=== PATIENT | female | born 1945 | race Caucasian/White ===

== ENCOUNTER → 2018-06-24 11:30 | Outpatient (CLI) | payer MEDICARE, OTHER, SELFPAY ==
--- NOTE | 2018-06-24 11:33 | DI.MRI.S_ITS ---
PROCEDURE: MR LUMBAR SPINE WO CON INDICATIONS: chronic axial low back pain TECHNIQUE: Noncontrast sagittal T1 spin echo and T2 fast echo, sagittal STIR, axial T1 and T2 fast spin echo through the lumbar spine. In cases with scoliosis, additional coronal T2 fast spin echo may be performed. COMPARISON: [facility], CR, XR LUMBAR SPINE MIN 4V, 06/24/2018, 11:34. FINDINGS: Image quality: Excellent. Alignment and Curvature: Grade 1 anterolisthesis is seen at L5-S1. Bilateral pars defects are faintly visualized. Bone Marrow: Marrow is of normal overall signal. No acute vertebral body compression fractures. Spinal Cord: Conus medullaris terminates at the L1 level. Visualized cord demonstrates normal signal and size. Paraspinous Soft Tissues: No paravertebral masses. T12-L1: Normal appearance. L1-L2: At least moderate loss of disc height is seen. Loss of disc signal is seen at this level. Moderate generalized disc bulge is seen. There is mild to moderate left-sided and minimal to mild right-sided neural foraminal narrowing seen. No significant central canal narrowing is seen. L2-L3: The disc height is well-preserved. Loss of disc signal is seen at this level. Mild generalized disc bulge is seen. No significant neural foraminal narrowing is seen. Mild central canal narrowing is seen. L3-L4: Minimal loss of disc height is seen. Loss of disc signal is seen. Moderate disc bulge is seen at this level. Moderate facet hypertrophy is seen, with associated moderate hypertrophy of the ligamentum flavum. There is moderate right-sided and moderate to severe left-sided neural foraminal narrowing seen. There is a degree of impingement seen upon the exiting left L3 nerve root. At least moderate central canal narrowing is seen at this level. The degree of central canal narrowing is exacerbated by a relatively prominent epidural posteriorly. L4-L5: The disc height is well-preserved. Loss of disc signal is seen at this level. Moderate generalized disc bulge is seen. Moderate facet joint hypertrophy is seen. There is moderate bilateral neural foraminal narrowing seen. L5-S1: Moderate to severe loss of disc height and disc signal are seen. Endplate irregularity is seen. Moderate facet hypertrophy is seen. There is moderate left-sided and moderate to severe right-sided neural foraminal narrowing seen. There is a degree of impingement seen upon the exiting right L5 nerve root. No significant central canal narrowing is seen. IMPRESSION: Grade 1 L5-S1 anterolisthesis, with associated bilateral pars defects. Multiple levels of degenerative change are seen, which are most prominent at L5-S1, with moderate to severe right-sided neural foraminal narrowing, with associated nerve root impingement. Moderate to severe left-sided neural foraminal narrowing is seen at L3-L4, with associated nerve root impingement. Dictated by: Pro Herrmann M.D. on 06/24/2018 at 13:16 Approved by: Pro Herrmann M.D. on 06/24/2018 at 13:22
--- NOTE | 2018-06-24 11:33 | DI.RAD.S_ITS ---
PROCEDURE: XR LUMBAR SPINE MIN 4V INDICATIONS: Chronic low back pain' TECHNIQUE: 5 views of the lumbar spine were acquired. COMPARISON: [facility], MR, MR LUMBAR SPINE WO CON, 06/24/2018, 12:01. FINDINGS: Bones: 5 nonrib-bearing vertebrae are present. There is grade 1 anterolisthesis of L5 on S1. No vertebral body compression fractures. No suspicious bony lesions. There is degenerative disc disease, severe at L5-S1, moderate at L1-L2 and mild at other levels. There is moderate facet arthropathy lower lumbar spine. Soft tissues: Overlying bowel gas pattern is normal. No suspicious soft tissue calcifications. Oblique images: Bilateral pars defects at L5. IMPRESSION: 1. Degenerative disc and facet disease. 2. Pars defect at L5 bilaterally causing grade 1 anterolisthesis of L5 on S1. Dictated by: Franco Jean-Baptiste M.D. on 06/24/2018 at 17:23 Approved by: Franco Jean-Baptiste M.D. on 06/24/2018 at 17:28
== END ==
PROVIDERS: PCP Internal Medicine Geriatric Medicine; Visit Provider Physical Medicine & Rehabilitation
DX: M54.5 Low back pain (principal); G89.29 Other chronic pain; M43.17 Spondylolisthesis, lumbosacral region; M48.061 Spinal stenosis, lumbar region without neurogenic claudication; M47.27 Other spondylosis with radiculopathy, lumbosacral region
CPT/HCPCS: 72110; 72148

== ENCOUNTER 2018-08-20 13:50 | Outpatient (CLI) | payer MEDICARE, OTHER, SELFPAY ==
[2018-08-20] VITALS (7 sets, daily range): BP systolic 146–175; BP diastolic 54–94; PULSE 59–65; RESP 16–18; TEMP 36.1; O2SAT 96–99
--- NOTE | 2018-08-20 13:58 | DI.RAD.S_ITS ---
PROCEDURE: PAIN L/S TRANSFORAMINAL INJECT INDICATIONS: RADICULOPATHY FINDINGS: Fluoroscopic spot filming was performed to verify placement of spinal needles at the right L5-S1 level level(s), as labeled on the films. Appropriate location(s) of the needle tip(s) was confirmed by injection of iodinated contrast. IMPRESSION: Successful needle tip localization at the neural foramen on the right at the L5-S1 level, for transforaminal epidural steroid injection. Dictated by: Hay Thomas M.D. on 08/20/2018 at 15:26 Approved by: Hay Thomas M.D. on 08/20/2018 at 15:26
[2018-08-20] MEDS: MIDAZOLAM 5 MG/5 ML VIAL IV (15:00)
[2018-08-20] MEDS: BUPIVACAINE 0.25% (PF) VIAL 2 ML INJ (15:04)
[2018-08-20] MEDS: DEXAMETHASONE 10 MG/ML VIAL 20 MG INJ (15:04)
[2018-08-20] MEDS: IOPAMIDOL 15 ML VIAL 3 ML INJ (15:04)
--- NOTE | 2018-08-20 15:08 | PC.NURSE ---
pt tolerated procedure well. Able to get off the table with minimal assist. Transferred pt to pre procedure room awake and alert. Continued monitoring with Norma BAKER.
--- NOTE | 2018-08-20 15:17 | P.PCN_ITS ---
Procedures Date/Time Date of procedure: 08/20/18 Time of procedure: 15:17 General Procedure description: PREOP DIAGNOSIS 1. FORMAINAL STENOSIS WITH LE SYMPTOMS, POST OP DIAGNOSIS 1. FORMAINAL STENOSIS WITH LE SYMPTOMS, PROCEDURES 1.FLUOROSCOPICALLY GUIDED CONTRAST CONTROLLED TRANSFORAMINAL EPIDURAL STEROID INJECTION - RIGHT L5/S1 TFESI PHYSICIAN: Luis Daniel Stark DO INDICATIONS: Rosi is referred by Dr. Reese for treatment of Foraminal Stenosis with right LE Symptoms FINDINGS Foraminal Nerve Root Compression secondary to disc disease and facet hypertrophy DESCRIPTION OF PROCEDURE Following denial of allergy and review of potential side effects and complications, including, but not necessarily limited to, infection, allergic reaction, local tissue breakdown, stroke, temporary or permanent nerve injury, paralysis, and possible , the patient indicated that the patient understood and agreed to proceed. An informed consent document was signed by the patient, witnessed by a nurse, and placed in the patient's chart. Additionally, other treatment options including medications, modalities, and physical therapy were reviewed with the patient. After review of previous anaesthesic history and IV conscious sedation the patient was deemed safe to proceed with todays procedure with IV conscious sedation as ASA class II designation. Safety time-out was performed to confirm patient ID, procedure to be performed and site of procedure. IV sedation was accomplished with a combination of 3mg of Versed was administered by the RN after DO order, titrated to patient comfort during the course of the procedure while the patient remained responsive to all verbal commands In the prone position following sterile prep and drape of the lumbar region, the right L5/S1 posterior neuroforamen was identified fluoroscopically. The skin was anesthetized via a 25-gauge 1.5-inch needle with 1% lidocaine solution. At this point, a 25-gauge 3.5-inch spinal needle was atraumatically introduced and advanced under fluoroscopic guidance through the posterior right L5/S1 neuroforamen to approximately the anterior aspect of the canal. Depth was confirmed on lateral view. Following negative aspiration, injection of approxim ately 1.5 cc of Isovue 200 under live fluoroscopy in the AP view confirmed excellent flow along the nerve root, into the epidural space without vascular or intrathecal uptake observed Radiological data, including multiple fluoroscopic views of the lumbosacral spine, reveal a spinal needle at the right L5/S1 posterior neuroforamen. Subsequent views show flow of contrast material flowing superiorly and inferiorly along the nerve root confirming epidural flow. Subsequently, a test dose of 1.5 cc of 1% lidocaine solution was administered and patient was observed for two minutes for signs or symptoms of complications, including abdominal pain, shortness of breath, bilateral upper or lower extremity weakness, nausea and vomiting, prior to steroid injection. At this point, a total of 2cc or 20mg of dexamethasone was injected without incident. The procedure tolerated the procedure well without signs or symptoms of complications prior to transfer to the recovery area continued monitoring without incident. The patient was then transferred to the recovery area where they were observed for an appropriate time after the injection. The patient reported a VAS score of 7 prior to the procedure and a post-procedure VAS of 0. Total Fluoroscopy Time: 20.9 seconds Total Conscious Sedation Time: 24min POST OP INSTRUCTIONS The patient was provided a Pain Log to continue to record their response to the target-specific procedure prior to follow-up visit with their referring physician. Additionally, specific post-injection care instructions and a contact number to our office were provided if concerns arise regarding possible complications associated with the procedure are suspected. Luis Daniel Stark DO Complications: none
--- NOTE | 2018-08-20 15:27 | PC.NURSE ---
ACCEPTED CARE OF PT IN STABLE CONDITION IN POST PROC AREA.
== END 2018-08-20 16:21 | disposition home or self-care (01) ==
PROVIDERS: PCP Internal Medicine Geriatric Medicine; Visit Provider Physical Medicine & Rehabilitation
DX: M48.07 Spinal stenosis, lumbosacral region (principal); M51.17 Intervertebral disc disorders with radiculopathy, lumbosacral region; M47.27 Other spondylosis with radiculopathy, lumbosacral region; M43.16 Spondylolisthesis, lumbar region; M43.17 Spondylolisthesis, lumbosacral region
CPT/HCPCS: 64483; 99152; J1100; J2250; J3010

== ENCOUNTER 2018-09-24 13:09 | Outpatient (CLI) | payer MEDICARE, OTHER, SELFPAY ==
[2018-09-24] VITALS (8 sets, daily range): BP systolic 107–174; BP diastolic 62–96; PULSE 61–72; RESP 16–18; TEMP 36.5; O2SAT 94–98
--- NOTE | 2018-09-24 13:10 | DI.RAD.S_ITS ---
PROCEDURE: PAIN L/SI FACET INJ/BLK 1STL INDICATIONS: SPONDYLOSIS FINDINGS: Fluoroscopic spot filming was performed to verify placement of spinal needles at the L5-S1 level(s), as labeled on the films. Appropriate location(s) of the needle tip(s) was confirmed by injection of iodinated contrast. Dictated by: Rasta Gleason M.D. on 09/24/2018 at 16:02 Approved by: Rasta Gleason M.D. on 09/24/2018 at 16:04
[2018-09-24] MEDS: MIDAZOLAM 5 MG/5 ML VIAL IV (14:10)
[2018-09-24] MEDS: fentaNYL 100 MCG/2 ML INJ 50 MCG IV (14:15)
[2018-09-24] MEDS: BUPIVACAINE 0.5% (PF) VIAL 2 ML INJ (14:32)
[2018-09-24] MEDS: IOPAMIDOL 15 ML VIAL 3 ML INJ (14:32)
[2018-09-24] MEDS: LIDOCAINE 1% 20 ML INJ 10 ML INJ (14:32)
[2018-09-24] MEDS: BETAMETHASONE 30 MG/5 ML MDV 12 MG INJ (14:33)
--- NOTE | 2018-09-24 14:36 | PC.NURSE ---
pt tolerated procedure well. Able to get off the table with standby assist. Transferred pt to pre procedure room via wheelchair for continued monitoring with Elizabeth BAKER.
--- NOTE | 2018-09-24 14:41 | P.PCN_ITS ---
Procedures Date/Time Date of procedure: 09/24/18 Time of procedure: 14:39 General Procedure description: PREOP DIAGNOSIS 1. FACET ARTHROPATHY, 2. AXIAL LBP, 3. MULTILEVEL DDD, POST OP DIAGNOSIS 1. FACET ARTHROPATHY, 2. AXIAL LBP, 3. MULTILEVEL DDD, PROCEDURES 1. FLUORSCOPICALLY GUIDED CONTRAST CONTROLLED FACET JOINT INJECTIONS BILATERAL L5/S1 PHUSICIAN: Luis Daniel Stark, DO INDICATIONS Rosi is referred by Dr. Reese for treatment of Axial LBP FINDINGS Multilevel Facet Arthropathy with Clinically significant axial LBP DESCRIPTION OF PROCEDURE Fluoroscopically guided, contrast-controlled bilateral L5/S1 facet joint in figueroa. Following denial of allergy and review of potential side effects and complications, including, but not necessarily limited to, infection, allergic reaction, local tissue breakdown, stroke, temporary or permanent nerve injury, paralysis, and possible , the patient indicated that the patient understood and agreed to proceed. An informed consent document was signed by the patient, witnessed by a nurse, and placed in the patient's chart. Additionally, other treatment options including medications, modalities, and physical therapy were reviewed with the patient. After review of previous anaesthesic history and IV conscious sedation the patient was deemed safe to proceed with todays procedure with IV conscious sedation as ASA class II designation. Safety time-out was performed to confirm patient ID, procedure to be performed and site of procedure. IV sedation was accomplished with a combination of 3mg of Versed and 50mcg of Fentanyl administered by the RN after DO order, titrated to patient comfort during the course of the procedure while the patient remained responsive to all verbal commands In the prone position, following sterile prep and drape of the lumbar region, the posterior aspect of the L5/S1 facet joints were identified fluoroscopically. The skin was anesthetized via a 25-gauge 1.5-inch needle with 1% lidocaine solution into the corresponding facet joints. At this point, a 22-gauge 5-inch spinal needle was atraumatically introduced and advanced under fluoroscopic guidance into the corresponding facet joints. Following negative aspiration, injections of approximately 0.2-cc of Isovue 200 confirmed interarticular placement without vascular uptake. The identical procedure was then performed at the L5/S1 facet joints on the left. Radiological data, including multiple fluoroscopic views of the lumbosacral spine, reveal a spinal needle at the L5/S1 facet joints bilaterally. Subsequent views show flow of contrast material both superiorly and inferiorly within the joint space without vascular or intrathecal uptake. At this point, a total of 0.5 cc including a mixture of 0.25cc Marcaine and 0.25cc betamethasone was injected without complication into each of the corresponding facet joints. The patient tolerated the procedure well without signs or symptoms of complications prior to transfer to the recovery area continued monitoring without incident. The patient was then transferred to the recovery area where they were observed for an appropriate period of time after the injection. The patient reported a VAS score of 7 prior to the procedure and a post-procedure VAS of 0. Total Fluoroscopy Time: 21.0 seconds Total conscious sedation time: 24 min POST OP INSTRUCTIONS The patient was provided a Pain Log to continue to record their response to the target-specific procedure prior to follow-up visit with their referring physician. Additionally, specific post-injection care instructions and a contact number to our office were provided if concerns arise regarding possible complications associated with the procedure are suspected. Luis Daniel Stark, Complications: none
--- NOTE | 2018-09-24 16:12 | PC.NURSE ---
1440 rtr from procedure via w/c, self transfer to chair, reports pain free at this time. tolerating drinks and snacking on cookies. spouse at bs.
== END 2018-09-24 15:01 ==
LOC: RAD 13:10
PROVIDERS: PCP Internal Medicine Geriatric Medicine; Visit Provider Physical Medicine & Rehabilitation
DX: M47.817 Spondylosis without myelopathy or radiculopathy, lumbosacral region (principal); M54.5 Low back pain; M51.37 Other intervertebral disc degeneration, lumbosacral region
CPT/HCPCS: 64493; 99152; J0702; J2250; J3010

== ENCOUNTER 2018-11-06 13:08 | Outpatient (CLI) | payer MEDICARE, OTHER, SELFPAY ==
[2018-11-06] VITALS (9 sets, daily range): BP systolic 140–174; BP diastolic 73–112; PULSE 56–64; RESP 14–16; TEMP 36.1; O2SAT 95–100
--- NOTE | 2018-11-06 13:09 | DI.RAD.S_ITS ---
PROCEDURE: PAIN L/SI FACET INJ/BLK 1STL INDICATIONS: SPONDYLOSIS FINDINGS: Fluoroscopic spot filming was performed to verify placement of spinal needles at the level(s) as labeled on the films. Appropriate location(s) of the needle tip(s) was confirmed by injection of iodinated contrast. IMPRESSION: Fluoroscopy for pain management. Dictated by: Franco Jean-Baptiste M.D. on 11/06/2018 at 14:55 Approved by: Franco Jean-Baptiste M.D. on 11/06/2018 at 14:55
[2018-11-06] MEDS: MIDAZOLAM 5 MG/5 ML VIAL IV (14:00)
[2018-11-06] MEDS: fentaNYL 100 MCG/2 ML INJ 50 MCG IV (14:00)
[2018-11-06] MEDS: BUPIVACAINE 0.5% (PF) VIAL 2 ML INJ (14:07)
[2018-11-06] MEDS: IOPAMIDOL 15 ML VIAL 3 ML INJ (14:08)
[2018-11-06] MEDS: BETAMETHASONE 30 MG/5 ML MDV 12 MG INJ (14:08)
--- NOTE | 2018-11-06 14:23 | PC.NURSE ---
Pt tolerated procedure well. Able to get off the table with standby assist. Transferred pt awake and alert to pre procedure room via wheelchair for continued monitoring with Norma BAKER.
--- NOTE | 2018-11-06 14:30 | P.PCN_ITS ---
Procedures Date/Time Date of procedure: 11/06/18 Time of procedure: 14:30 General Procedure description: PREOP DIAGNOSIS 1. FACET ARTHROPATHY 2. AXIAL LBP 3. MULTILEVEL DDD POST OP DIAGNOSIS 1. FACET ARTHROPATHY 2. AXIAL LBP 3. MULTILEVEL DDD PROCEDURES 1. FLUORSCOPICALLY GUIDED CONTRAST CONTROLLED FACET JOINT INJECTIONS BILATERAL L4/5, L5/S1 PHYSICIAN: Luis Daniel Stark, DO INDICATIONS Rosi is referred by Dr. Reese for treatment of Axial LBP FINDINGS Multilevel Facet Arthropathy with Clinically significant axial LBP DESCRIPTION OF PROCEDURE Fluoroscopically guided, contrast-controlled bilateral L4/5, L5/S1 facet joint injections. Following review of allergy and review of potential side effects and complications, including, but not necessarily limited to, infection, allergic reaction, local tissue breakdown, stroke, temporary or permanent nerve injury, paralysis, and possible , the patient indicated that the patient understood and agreed to proceed. An informed consent document was signed by the patient, witnessed by a nurse, and placed in the patient's chart. Additionally, other treatment options including medications, modalities, and physical therapy were reviewed with the patient. After review of previous anaesthesic history and IV conscious sedation the patient was deemed safe to proceed with todays procedure with IV conscious sedation as ASA class II designation. Safety time-out was performed to confirm patient ID, procedure to be performed and site of procedure. IV sedation was accomplished with a combination of 3mg of Versed and 50mcg of Fentanyl was administered by the RN after DO order, titrated to patient comfort during the course of the procedure while the patient remained responsive to all verbal commands In the prone position, following sterile prep and drape of the lumbar region, the posterior aspect of the L4/5, L5/S1 facet joints were identified fluoroscopically. The skin was anesthetized via a 25-gauge 1.5-inch needle with 1% lidocaine solution into the corresponding facet joints. At this point, a 22- gauge 3.5-inch spinal needle was atraumatically introduced and advanced under fluoroscopic guidance into the corresponding facet joints. Following negative a spiration, injections of approximately 0.2-cc of Isovue 200 confirmed interarticular placement without vascular uptake. The identical procedure was then performed at the L4/5, L5/S1 facet joints on the left. Radiological data, including multiple fluoroscopic views of the lumbosacral spine, reveal a spinal needle at the L4/5, L5/S1 facet joints bilaterally. Subsequent views show flow of contrast material both superiorly and inferiorly within the joint space without vascular or intrathecal uptake. At this point, a total of 0.5 cc including a mixture of 0.25cc Marcaine and 0.25cc betamethasone was injected without complication into each of the corresponding facet joints. The patient tolerated the procedure well without signs or symptoms of complications prior to transfer to the recovery area continued monitoring without incident. The patient was then transferred to the recovery area where they were observed for an appropriate period of time after the injection. The patient reported a VAS score of 7 prior to the procedure and a post- procedure VAS of 0. Total Fluoroscopy Time: 20.3 seconds Total Conscious Sedation Time: 24min POST OP INSTRUCTIONS The patient was provided a Pain Log to continue to record their response to the target-specific procedure prior to follow-up visit with their referring physician. Additionally, specific post-injection care instructions and a contact number to our office were provided if concerns arise regarding possible complications associated with the procedure are suspected. Luis Daniel Stark DO Complications: none
[2018-11-06] MEDS: LIDOCAINE 1% 20 ML INJ 10 ML INJ (14:49)
== END 2018-11-06 15:19 | disposition home or self-care (01) ==
LOC: RAD 13:09
PROVIDERS: PCP Internal Medicine Geriatric Medicine; Visit Provider Physical Medicine & Rehabilitation
DX: M47.816 Spondylosis without myelopathy or radiculopathy, lumbar region (principal); M47.817 Spondylosis without myelopathy or radiculopathy, lumbosacral region; M54.5 Low back pain; M51.36 Other intervertebral disc degeneration, lumbar region; M51.37 Other intervertebral disc degeneration, lumbosacral region
CPT/HCPCS: 64493; 64494; 99152; J0702; J2250; J3010

== ENCOUNTER 2019-01-22 11:05 | Outpatient (CLI) | payer MEDICARE, OTHER, SELFPAY ==
[2019-01-22] VITALS (9 sets, daily range): BP systolic 99–163; BP diastolic 59–92; PULSE 65–71; RESP 16; TEMP 36.2; O2SAT 94–99
--- NOTE | 2019-01-22 11:07 | DI.RAD.S_ITS ---
PROCEDURE: PAIN L/S MED/LAT N RFA BILAT INDICATIONS: SPONDYLOSIS FINDINGS: Fluoroscopic spot filming was performed to verify placement of spinal needles overlie the L4-5 and L5-S1 level(s), as labeled on the films. Appropriate location(s) of the needle tip(s) was confirmed by injection of iodinated contrast. IMPRESSION: Fluoroscopic guidance as above. Dictated by: Gemma Zafar M.D. on 01/22/2019 at 18:30 Approved by: Gemma Zafar M.D. on 01/22/2019 at 18:30
[2019-01-22] MEDS: fentaNYL 100 MCG/2 ML INJ 50 MCG IV (12:10)
[2019-01-22] MEDS: MIDAZOLAM 5 MG/5 ML VIAL IV (12:10)
[2019-01-22] MEDS: LIDOCAINE 1% 20 ML 10 ML INJ (12:13)
[2019-01-22] MEDS: BUPIVACAINE 0.5% (PF) VIAL 5 ML INJ (12:13)
[2019-01-22] MEDS: BETAMETHASONE 30 MG/5 ML MDV 12 MG INJ (12:14)
--- NOTE | 2019-01-22 12:39 | PC.NURSE ---
Pt tolerated procedure well. Pt able to get off table with 2 person minimal assist. Transferred pt via wheelchair to pre procedure room for continued monitoring with Norma BAKER.
--- NOTE | 2019-01-22 12:42 | P.PCN_ITS ---
Procedures Date/Time Date of procedure: 01/22/19 Time of procedure: 12:42 General Procedure description: PREOP DIAGNOSIS 1. RECALCITRANT FACET ARTHROPATHY, POST OP DIAGNOSIS 1. RECALCITRANT FACET ARTHROPATHY, PROCEDURES 1. LEFTT L4 AND L5 MEDIAL BRANCH RADIOFREQUENCY NEUROTOMY AND LEFT S1 DORSAL RAMUS RADIOFREQUENCY NEUROTOMY, PHYSICIAN: Luis Daniel Stark, DO INDICATIONS Rosi is referred by for treatment of facet arthropathy. DESCRIPTION OF PROCEDURE Left L4 and L5 medial branch radiofrequency neurotomy and left S1 dorsal ramus branch radiofrequency neurotomy under fluoroscopy with conscious sedation. The patient is well known to this clinic having undergone previous facet injections with good but temporary relief. The patient has experienced appropriate, concordant relief with previous facet and median branch blocks but the patient's pain has been recalcitrant to further conservative measures. Therefore, based upon the patient's relief and persistent symptoms, the patient is considered an appropriate candidate for facet rhizotomy. All of the patient's questions regarding the risks versus benefits of the procedure, including, but not limited to, bleeding, infection, temporary as well as lasting nerve injury, paralysis, stroke, and , as well treatment alternatives were answered to satisfaction. After obtaining informed consent, denial of pertinent drug allergies, as well as being made aware of the potential risks of bleeding, infection, spinal cord trauma, paralysis, temporary and permanent nerve damage, seizure, stroke, and possible , the patient was brought to the fluoroscopy suite and positioned prone on the fluoroscopy table. The lumbar region was prepped with Betadine and covered with a fenestrated drape in the usual sterile fashion. Appropriate monitors applied including pulse oximeter, pulse, and blood pressure for regular monitoring throughout the procedure. IV sedation was accomplished with a combination of 4mg of Versed and 50mcg of Fentanyl titrated to patient comfort during the course of the procedure while the patient remained responsive to all verbal commands. After local infiltration using 1% lidocaine, under fluoroscopic guidance, a 10- cm RF insulated needle with a 10-mm active tip was positioned parallel to the junction of the left sacral ala and the superior articulating process where the S1 dorsal ramus resides. Needle placement was confirmed with sensory stimulation at 50 Hz, with motor stimulation of .5v on the left which produced local stimulation without radicular component. The stimulation was then increased to 1.5v with, once again, only local multifidus stimulation without radicular component. This was then followed by two discreet lesions performed at 80 degrees Celsius for 90 seconds each. The needle was then removed and the identical procedure was performed along the length of the left L5 medial branch with motor stimulation at .7v on the left. The identical procedure was once again performed along the length of the left L4 medial branch with motor stimulation of .5v on the left. The patient tolerated the procedure well without signs or symptoms of complications prior to transfer to the recovery area continued monitoring without incident. The patient was then transferred to the recovery area where they were observed for an appropriate period of time after the injection. The patient was then transferred to the recovery area where they were observed for an appropriate period of time after the injection. The patient reported a VAS score of 9 prior to the procedure and a post- procedure VAS of 0. Total Fluoroscopy Time: 22.7 seconds Total Conscious Sedation Time: 34min POST OP INSTRUCTIONS The patient was provided a Pain Log to continue to record the patient's response to the target-specific procedure prior to the patient's follow-up visit with the referring physician. Additionally, specific post-injection care instructions and a contact number to our office were provided if concerns arise regarding possible complications associated with the procedure are suspected. Luis Daniel Stark, Complications: none
== END 2019-01-22 13:59 | disposition home or self-care (01) ==
LOC: RAD 11:06
PROVIDERS: PCP Internal Medicine Geriatric Medicine; Visit Provider Physical Medicine & Rehabilitation
DX: M47.27 Other spondylosis with radiculopathy, lumbosacral region (principal); M47.817 Spondylosis without myelopathy or radiculopathy, lumbosacral region
CPT/HCPCS: 64635; 64636; 99152; 99153; J0702; J2250; J3010